=== PATIENT | female | born 1960 | race Caucasian/White ===

== ENCOUNTER 2016-08-03 10:14 | Day surgery (SDC) | payer BC ==
[2016-07-31 17:03] LABS: BILIRUBIN,URINE NEGATIVE (NEGATIVE); CLARITY/URINE CLEAR (CLEAR); COLOR,URINE YELLOW (YELLOW); GLUCOSE,URINE NEGATIVE (NEGATIVE); KETONES,URINE NEGATIVE (NEGATIVE); LEUKOCYTE ESTERASE ,URINE NEGATIVE (NEGATIVE); NITRITE, URINE NEGATIVE (NEGATIVE); PROTEIN URINE NEGATIVE (NEGATIVE); UROBILINOGEN,URINE 0.2 (0.2-1.0)
[2016-07-31 17:05] LABS: BLOOD, URINE TRACE (NEGATIVE)
[2016-07-31 17:24] LABS: BACTERIA,URINE FEW /HPF (None Seen); RBC,URINE 0-3 /HPF (0-3); WBC,URINE 0-3 /HPF (0-3)
[2016-07-31 17:25] LABS: MUCUS,URINE None Seen /LPF (None Seen)
[~2016-08-03] VITALS: Ht 170.2 cm; Wt 95.3 kg
[2016-08-03] MEDS ORDERED: CEFAZOLIN 2 GM IVPB PREMIX 50 ML IV ONE (11:00)
[2016-08-03] MEDS ORDERED: LR 1,000 ML IV SCH ×2 (12:06→13:41)
[2016-08-03] MEDS ORDERED: MEPERIDINE HCL/PF 25 MG/ML DISP.SYRIN IVP PRN ×2 (12:15)
[2016-08-03] MEDS ORDERED: HYDROmorphone 1 MG INJ. 1 MG/ML AMPUL IVP PRN (12:15)
[2016-08-03] MEDS ORDERED: ONDANSETRON HCL 4 MG/2 ML VIAL IVP PRN (12:15)
[2016-08-03] MEDS ORDERED: KETOROLAC TROMETHAMINE 30 MG VIAL IVP PRN (12:15)
[2016-08-03] MEDS ORDERED: HYDROmorphone 2 MG/ML VIAL IVP PRN ×2 (12:15)
[2016-08-03] MEDS ORDERED: HYDROcodone/ACETAMIN 5-325 MG TAB (NORCO/ VICODIN) PO PRN (13:45)
[2016-08-03] MEDS ORDERED: DIPHENHYDRAMINE HCL 25 MG CAPSULE PO PRN (13:45)
[2016-08-03 14:40] VITALS: BP_SYST 134
== END 2016-08-03 17:15 | disposition home or self-care (01) ==
LOC: SDS 10:14 → SMU 10:17 → SDS 17:15
PROVIDERS: ATTEND Orthopaedic Surgery
DX: M23.222 Derangement of posterior horn of medial meniscus due to old tear or injury, left knee (principal); E03.9 Hypothyroidism, unspecified; Z98.890 Other specified postprocedural states
CPT/HCPCS: 29881; 71020; 81000; J0690; J7120